=== PATIENT | female | born 1960 | race Caucasian/White ===

== ENCOUNTER 2021-11-13 15:15 | Emergency (ER) | payer OTHER ==
[~2021-11-13] VITALS: Wt 63.5 kg
== END 2021-11-13 19:24 | disposition left against medical advice (07) ==
LOC: ED 15:15
DX: Z53.21 Procedure and treatment not carried out due to patient leaving prior to being seen by health care provider (principal)

== ENCOUNTER 2023-06-20 09:23 | Emergency (ER) | payer MEDICARE ==
[~2023-06-20] VITALS: Ht 162.5 cm; Wt 59.9 kg
[2023-06-20] MEDS ORDERED: Acetaminophen/Oxycodone 5 MG/325 MG TABLET PO ONE (09:55)
[2023-06-20] MEDS ORDERED: CYCLOBENZAPRINE10 MG PO (10:18)
[2023-06-20] MEDS ORDERED: MELOXICAM15 MG PO (10:18)
== END 2023-06-20 10:41 | disposition home or self-care (01) ==
LOC: ED 09:23
DX: M25.552 Pain in left hip (principal); M16.12 Unilateral primary osteoarthritis, left hip; M54.50 Low back pain, unspecified